=== PATIENT | male | born 1950 | race Two or more races ===

== ENCOUNTER 2018-10-16 12:52 | Emergency (ER) | payer OTHER ==
[2018-10-16 15:33] VITALS: BP 122/75
== END 2018-10-16 15:33 | disposition home or self-care (01) ==
LOC: ED 12:52
DX: S13.4XXA Sprain of ligaments of cervical spine, initial encounter (principal); S09.8XXA Other specified injuries of head, initial encounter; I10 Essential (primary) hypertension; E11.9 Type 2 diabetes mellitus without complications; M54.6 Pain in thoracic spine; V49.9XXA Car occupant (driver) (passenger) injured in unspecified traffic accident, initial encounter; Y92.413 State road as the place of occurrence of the external cause; Y93.I9 Activity, other involving external motion; Y99.8 Other external cause status
CPT/HCPCS: 72072; 82962; 99406